=== PATIENT | female | born 1965 | race Caucasian/White ===

== ENCOUNTER 2017-11-21 14:59 | Emergency (ER) | payer SELFPAY ==
[~2017-11-21] VITALS: Ht 165.1 cm; Wt 62.0 kg
[2017-11-21 15:08] VITALS: BP 142/83; PULSE 128; RESP 20; TEMP 98.3; O2SAT 98
--- NOTE | 2017-11-21 15:18 | PD ---
HPI Chief Complaint: Abdominal Pain Time Seen by Provider: 15:12 Travel History International Travel<30 days: No Contact w/Intl Traveler<30days: No Traveled to known affect area: No History of Present Illness HPI 52-year-old female with history of alcoholism presents to the emergency department for evaluation of abdominal pain. It began this morning.. She has been nauseous with vomiting. Subjective fever and chills. No changes in bowel or bladder. No other symptoms to report. PFSH Past Medical History Medical History: Denies Significant Hx Social History Alcohol Use: Yes Tobacco Use: Yes Allergies-Medications (Allergen,Severity, Reaction): Coded Allergies: No Known Allergies (Unverified , 11/21/17) Review of Systems Except as stated in HPI: all other systems reviewed are Neg Physical Exam Narrative Disheveled appearing female patient, ambulatory and in no acute distress. Even respirations. Elevated heart rate. Abdomen is nondistended. Patient moves all extremities. No obvious deformities. Data Data Last Documented VS Vital Signs Date Time Temp Pulse Resp B/P (MAP) Pulse Ox O2 Delivery O2 Flow Rate FiO2 11/21/17 19:50 11/21/17 15:08 98.3 128 20 98 Room Air Orders MDM Medical Decision Making Medical Screen Exam Complete: Yes Emergency Medical Condition: Yes Medical Record Reviewed: Yes Differential Diagnosis Pancreatitis versus cholecystitis versus gastritis versus UTI Narrative Course 52-year-old female presents to emergency department for evaluation. Prior to that assignment, patient chooses to leave AGAINST MEDICAL ADVICE so she can go and smoke a cigarette. AMA: The risks of leaving against medical advice without further evaluation treatment were discussed with the patient. These risks include cardiac dysfunction, cardiac dysrhythmia, possible heart attack, possible stroke or . The patient indicated understanding of these risks and appeared to have the capacity to make this decision. Diagnosis Primary Impression: Abdominal pain Disposition: 07 AGAINST MEDICAL ADVICE Condition: Stable Samantha Leyva CHRIS Nov 21, 2017 15:18
== END 2017-11-21 19:51 | disposition left against medical advice (07) ==
LOC: NEDAMB 14:59
DX: R10.9 Unspecified abdominal pain (principal); R11.2 Nausea with vomiting, unspecified; Z72.0 Tobacco use; Z53.21 Procedure and treatment not carried out due to patient leaving prior to being seen by health care provider
CPT/HCPCS: 99281

== ENCOUNTER 2017-11-21 15:22 | Emergency (ER) | payer SELFPAY ==
[~2017-11-21] VITALS: Ht 165.1 cm; Wt 62.0 kg
[2017-11-21 15:24] VITALS: BP 142/83; PULSE 128; RESP 20; TEMP 98.3; O2SAT 98
--- NOTE | 2017-11-21 15:55 | PD ---
HPI Chief Complaint: Abdominal Pain Time Seen by Provider: 15:54 Travel History International Travel<30 days: No Contact w/Intl Traveler<30days: No Traveled to known affect area: No History of Present Illness HPI 52-year-old female presents to the emergency department with complaints of right upper quadrant pain. Patient states he has been previously diagnosed with cirrhosis of liver back in May of this past year, and was alcohol free for 6 months. Patient states recent alcohol use over the past 3 days. She last drank a 5:00 this morning. Patient is complaining of worsening right upper quadrant pain since started drinking 3 days ago. Patient is currently intoxicated. She denies nausea or vomiting. She denies diarrhea. She states her urine is darker than normal. She denies headache currently. She denies any other medical issues. She has no known drug allergies. [facility] Social History Alcohol Use: Yes Tobacco Use: Yes Substance Use: No Allergies-Medications (Allergen,Severity, Reaction): Coded Allergies: No Known Allergies (Unverified , 11/21/17) Review of Systems ROS Limitations: Intoxication Except as stated in HPI: all other systems reviewed are Neg General / Constitutional: No: Fever Eyes: No: Visual changes HENT: No: Headaches Cardiovascular: No: Chest Pain or Discomfort Respiratory: No: Shortness of Breath Gastrointestinal: Positive: Nausea, Abdominal Pain, No: Vomiting, Diarrhea Genitourinary: No: Dysuria Musculoskeletal: No: Pain Skin: No Rash Neurologic: No: Weakness Psychiatric: Positive: Substance Abuse, No: Anxiety, Depression, Suicidal Ideations, Homicidal Ideation Endocrine: No: Polydipsia Hematologic/Lymphatic: No: Easy Bruising Physical Exam Exam Limitations: Intoxication Narrative GENERAL: Patient is intoxicated and upset. She is cooperative however. SKIN: Warm and dry. Normal color. Normal turgor. No jaundice. HEAD: Atraumatic. Normocephalic. EYES: Pupils equal and round. No scleral icterus. No injection or drainage. ENT: No nasal bleeding or discharge. Mucous membranes pink and moist. Pharynx is clear. Airway is patent. NECK: Trachea midline. Supple and nontender. CARDIOVASCULAR: Regular rate and rhythm. RESPIRATORY: No accessory muscle use. Clear to auscultation. Breath sounds equal bilaterally. GASTROINTESTINAL: Abdomen soft, non-tender, nondistended. Patient has what appears to be ascites with probable firm tender liver edge. MUSCULOSKELETAL: Extremities without clubbing, cyanosis, or edema. No obvious deformities. NEUROLOGICAL: Awake and alert. No obvious cranial nerve deficits. Motor grossly within normal limits. Five out of 5 muscle strength in the arms and legs. Normal speech. PSYCHIATRIC: Appropriate mood and affect; insight and judgment normal. Data Data Last Documented VS Vital Signs Date Time Temp Pulse Resp B/P (MAP) Pulse Ox O2 Delivery O2 Flow Rate FiO2 11/21/17 16:36 11/21/17 15:24 98.3 128 20 98 Room Air Orders Orders Complete Blood Count With Diff (11/21/17:28) Comprehensive Metabolic Panel (11/21/17:28) Lipase (11/21/17:28) Prothrombin Time / Inr (Pt) (11/21/17:) Act Partial Throm Time (Ptt) (11/21/17:28) Urinalysis - C+S If Indicated (11/21/17:28) Ct Abd/Pel W Iv Contrast(Rout) (11/21/17 16:02) Ondansetron Inj (Zofran Inj) (11/21/17 16:15) Sodium Chlor 0.9% 1000 Ml Inj (Ns 1000 M (11/21/17 16:02) Sodium Chloride 0.9% Flush (Ns Flush) (11/21/17 16:15) Electrocardiogram (11/21/17 16:02) Ammonia (11/21/17 16:02) Alcohol (Ethanol) (11/21/17 16:02) Thiamine Inj (Thiamine Inj) (11/21/17 16:15) Urine Culture (11/21/17 15:31) Labs Laboratory Tests Test 11/21/17 15:31 White Blood Count 7.6 TH/MM3 Red Blood Count 4.85 MIL/MM3 Hemoglobin 13.7 GM/DL Hematocrit 40.5 % Mean Corpuscular Volume 83.3 FL Mean Corpuscular Hemoglobin 28.3 PG Mean Corpuscular Hemoglobin Concent 33.9 % Red Cell Distribution Width 16.8 % Platelet Count 265 TH/MM3 Mean Platelet Volume 7.1 FL Neutrophils (%) (Auto) 46.6 % Lymphocytes (%) (Auto) 47.6 % Monocytes (%) (Auto) 4.1 % Eosinophils (%) (Auto) 1.2 % Basophils (%) (Auto) 0.5 % Neutrophils # (Auto) 3.6 TH/MM3 Lymphocytes # (Auto) 3.6 TH/MM3 Monocytes # (Auto) 0.3 TH/MM3 Eosinophils # (Auto) 0.1 TH/MM3 Basophils # (Auto) 0.0 TH/MM3 CBC Comment DIFF FINAL Differential Comment Prothrombin Time 10.5 SEC Prothromb Time International Ratio 1.0 RATIO Activated Partial Thromboplast Time 25.4 SEC Urine Color LIGHT-YELLOW Urine Turbidity HAZY Urine pH 5.0 Urine Specific [place] 1.004 Urine Protein NEG mg/dL Urine Glucose (UA) NEG mg/dL Urine Ketones NEG mg/dL Urine Occult Blood TRACE Urine Nitrite NEG Urine Bilirubin NEG Urine Urobilinogen LESS THAN 2.0 MG/DL Urine Leukocyte Esterase LARGE Urine RBC 1 /hpf Urine WBC 14 /hpf Urine Squamous Epithelial Cells 2 /hpf Urine Bacteria OCC /hpf Microscopic Urinalysis Comment CULTURE INDICATED Blood Urea Nitrogen 5 MG/DL Creatinine 0.54 MG/DL Random Glucose 87 MG/DL Total Protein 8.4 GM/DL Albumin 3.6 GM/DL Calcium Level 8.2 MG/DL Alkaline Phosphatase 99 U/L Aspartate Amino Transf (AST/SGOT) 18 U/L Alanine Aminotransferase (ALT/SGPT) 16 U/L Total Bilirubin 0.3 MG/DL Sodium Level 144 MEQ/L Potassium Level 3.8 MEQ/L Chloride Level 109 MEQ/L Carbon Dioxide Level 24.9 MEQ/L Anion Gap 10 MEQ/L Estimat Glomerular Filtration Rate 120 ML/MIN Lipase 79 U/L Ethyl Alcohol Level 331 MG/DL [facility] Medical Decision Making Medical Screen Exam Complete: Yes Emergency Medical Condition: Yes Differential Diagnosis Cirrhosis. Alcohol abuse. Ascites. Liver failure. Narrative Course Labs ordered in triage. These include CBC, CMP, and lipase. Additional labs were added including urinalysis, ammonia level, and serum EtOH. CT of the abdomen with IV contrast is ordered. Patient is given 4 mg Zofran IV as well as 1000 mL's normal saline bolus. Patient is given 100 mg thiamine IV. After all these were ordered, the patient elects to leave AMA despite long discussions with both myself and Dr. uribe and her family. I explained to the patient's family that I am unable to keep her against her will and she was dismissed AMA. Diagnosis Primary Impression: Patient left care setting after refusal of treatment Disposition: 07 AGAINST MEDICAL ADVICE Condition: Stable Vivek Schilling Nov 21, 2017 15:55
[2017-11-21] MEDS ORDERED: SODIUM CHLOR 0.9% 1000 ML INJ 1,000 ML IV SCH (16:02)
[2017-11-21 16:15] LABS: AUTOMATED NEUTROPHIL # 3.6 TH/MM3 (1.8-7.7); BASOPHIL % 0.5 % (0.0-2.0); EOSINOPHIL # 0.1 TH/MM3 (0-0.4); EOSINOPHIL % 1.2 % (0.0-4.0); HEMATOCRIT 40.5 % (35.0-46.0); HEMOGLOBIN 13.7 GM/DL (11.6-15.3); LYMPH % 47.6 % (9.0-44.0); LYMPHOCYTE # 3.6 TH/MM3 (1.0-4.8); MEAN CELL VOLUME 83.3 FL (80.0-100.0); MEAN CORPUSCULAR HEMOGLOBIN 28.3 PG (27.0-34.0); MEAN CORPUSCULAR HGB CONC 33.9 % (32.0-36.0); MEAN PLATELET VOLUME 7.1 FL (7.0-11.0); MONO % 4.1 % (0.0-8.0); MONOCYTE # 0.3 TH/MM3 (0-0.9); NEUT % 46.6 % (16.0-70.0); PLATELET COUNT 265 TH/MM3 (150-450); RED BLOOD COUNT 4.85 MIL/MM3 (4.00-5.30); RED CELL DISTRIBUTION WIDTH 16.8 % (11.6-17.2); WHITE BLOOD COUNT 7.6 TH/MM3 (4.0-11.0)
[2017-11-21] MEDS ORDERED: ONDANSETRON HCL 4 MG/2 ML VIAL IVP ONE (16:15)
[2017-11-21] MEDS ORDERED: THIAMINE INJ 100 MG in SODIUM CHLORIDE 0.9% INJ 100 ML IV ONE (16:15)
[2017-11-21] MEDS ORDERED: SODIUM CHLORIDE 0.9% FLUSH 10 ML FLUSH IV FLUSH PRN (16:15)
--- NOTE | 2017-11-21 16:20 | PD ---
Physical Exam Date Seen by Provider: Nov 21, 2017 Narrative This patient is an alcoholic who presents with right upper quadrant abdominal pain. She has been drinking today. Data Data Last Documented VS Vital Signs Date Time Temp Pulse Resp B/P (MAP) Pulse Ox O2 Delivery O2 Flow Rate FiO2 11/21/17 15:24 98.3 128 20 142/83 (102) 98 Room Air Orders Orders Complete Blood Count With Diff (11/21/17:28) Comprehensive Metabolic Panel (11/21/17:28) Lipase (11/21/17:28) Prothrombin Time / Inr (Pt) (11/21/17:28) Act Partial Throm Time (Ptt) (11/21/17:28) Urinalysis - C+S If Indicated (11/21/17:28) Ct Abd/Pel W Iv Contrast(Rout) (11/21/17 16:02) Iv Access Insert/Monitor (11/21/17 16:02) Ecg Monitoring (11/21/17 16:02) Oximetry (11/21/17 16:02) Ondansetron Inj (Zofran Inj) (11/21/17 16:15) Sodium Chlor 0.9% 1000 Ml Inj (Ns 1000 M (11/21/17 16:02) Sodium Chloride 0.9% Flush (Ns Flush) (11/21/17 16:15) Electrocardiogram (11/21/17 16:02) Ammonia (11/21/17 16:02) Alcohol (Ethanol) (11/21/17 16:02) Thiamine Inj (Thiamine Inj) (11/21/17 16:15) Labs Laboratory Tests Test 11/21/17 15:31 White Blood Count 7.6 TH/MM3 Red Blood Count 4.85 MIL/MM3 Hemoglobin 13.7 GM/DL Hematocrit 40.5 % Mean Corpuscular Volume 83.3 FL Mean Corpuscular Hemoglobin 28.3 PG Mean Corpuscular Hemoglobin Concent 33.9 % Red Cell Distribution Width 16.8 % Platelet Count 265 TH/MM3 Mean Platelet Volume 7.1 FL Neutrophils (%) (Auto) 46.6 % Lymphocytes (%) (Auto) 47.6 % Monocytes (%) (Auto) 4.1 % Eosinophils (%) (Auto) 1.2 % Basophils (%) (Auto) 0.5 % Neutrophils # (Auto) 3.6 TH/MM3 Lymphocytes # (Auto) 3.6 TH/MM3 Monocytes # (Auto) 0.3 TH/MM3 Eosinophils # (Auto) 0.1 TH/MM3 Basophils # (Auto) 0.0 TH/MM3 CBC Comment DIFF FINAL Differential Comment MDM Supervised Visit with ROXANN: Yes Narrative Course I, Dr. Warren, have reviewed the advance practice practitioner's documentation and am in agreement, met with the patient face to face, made the diagnosis, and the medical decision making was done by me. *My assessment and Findings: This patient is here with her son who seems a bit agitated with her. She is wanting to leave. He does not want her to. He wants her to stay and get help for her alcoholism. Please see Salas Schilling PA-C's note for results of laboratory and radiographic evaluation, ED course, final diagnosis and disposition Condition: Stable Suzanne Warren MD Nov 21, 2017 16:20
[2017-11-21 16:26] LABS: BACTERIA, URINE OCC /hpf; BILIRUBIN, URINE NEG (NEG); BLOOD, URINE TRACE (NEG); GLUCOSE,URINE NEG (NEG); KETONE, URINE NEG (NEG); NITRITE,URINE NEG (NEG); SQUAMOUS EPITHELIAL CELL URINE 2 /hpf (0-5); URINE COLOR LIGHT-YELLOW (YELLW/STRAW); URINE LEUKOCYTE ESTERASE LARGE (NEG)
[2017-11-21 16:28] LABS: PROTHROMBIN TIME - PATIENT 10.5 SEC (9.8-11.6)
[2017-11-21 16:31] LABS: ALBUMIN 3.6 GM/DL (3.4-5.0); AST (GOT) 18 U/L (15-37); BICARBONATE 24.9 MEQ/L (21.0-32.0); BLOOD UREA NITROGEN 5 MG/DL (7-18); CALCIUM 8.2 MG/DL (8.5-10.1); CHLORIDE 109 MEQ/L (98-107); CREATININE 0.54 MG/DL (0.50-1.00); GLOMERULAR FILTRATION RATE 120 ML/MIN (>89); GLUCOSE,RANDOM 87 MG/DL (74-106); SODIUM (NA) 144 MEQ/L (136-145)
[2017-11-21 16:33] LABS: ALKALINE PHOSPHATASE 99 U/L (45-117); ALT (GPT) 16 U/L (10-53); TOTAL BILIRUBIN ADULT 0.3 MG/DL (0.2-1.0); TOTAL PROTEIN 8.4 GM/DL (6.4-8.2)
== END 2017-11-21 19:47 | disposition left against medical advice (07) ==
LOC: NEPD 15:22
DX: F10.129 Alcohol abuse with intoxication, unspecified (principal); B96.1 Klebsiella pneumoniae [K. pneumoniae] as the cause of diseases classified elsewhere; Y90.8 Blood alcohol level of 240 mg/100 ml or more; Z53.21 Procedure and treatment not carried out due to patient leaving prior to being seen by health care provider; Z72.0 Tobacco use
CPT/HCPCS: 80053; 80307; 81001; 83690; 85025; 85610; 85730; 87077; 87086; 87186; 99283